=== PATIENT | male | born 1945 | race Caucasian/White ===

== ENCOUNTER 2016-10-20 19:19 | Observation (INO) | payer MEDICARE, OTHER ==
[~2016-10-20] VITALS: Ht 172.7 cm; Wt 68.3 kg
[~2016-10-20 19:19] MED LIST: ASPIR-LOW81 MG PO; ATIVAN0.5 MG PO; DEPAKOTE ER500 MG PO; FISH OIL1 GM PO; GLUCOPHAGE1000 MG PO; INVOKANA300 MG PO; LIPITOR10 MG PO; MULTI-VITAMIN1 EACH PO; SEROQUEL50 MG PO; ZOCOR20 MG PO
[2016-10-20] MEDS ORDERED: LIPITOR20 MG PO (20:32)
[2016-10-20] MEDS ORDERED: ACTOS15 MG PO (20:33)
== END 2016-10-21 14:31 | disposition short-term general hospital (02) ==
LOC: ER 19:19 → OBS 21:15 → IP 21:15
PROVIDERS: ADMIT Family Medicine
DX: R41.0 Disorientation, unspecified (principal); R53.1 Weakness; F41.9 Anxiety disorder, unspecified; F03.90 Unspecified dementia, unspecified severity, without behavioral disturbance, psychotic disturbance, mood disturbance, and anxiety; Z79.82 Long term (current) use of aspirin; Z79.899 Other long term (current) drug therapy; Z90.89 Acquired absence of other organs; Z98.890 Other specified postprocedural states
CPT/HCPCS: A9150; G0378